=== PATIENT | male | born 1995 | race Caucasian/White ===

== ENCOUNTER → 2018-04-28 14:42 | Outpatient (CLI) | payer OTHER, SELFPAY ==
[2018-04-28 10:40] VITALS: BMI 24.7
--- OUTSIDE RECORDS SUMMARY | 2018-07-03 13:45 | XMS RPT_ITS ---
:1995 Author Organization OHIP Care Team Providers Name Role Phone JACKLYN LUCAS II Attending Unavailable Juarez Davis Attending Unavailable Darryn Melendez Referring Unavailable Juarez Davis Attending Unavailable Juarez Davis Referring Unavailable Darryn Melendez Primary Care Unavailable PROBLEMS PROBLEMS DATE TYPE CONDITION / CODE ATTENDING STATUS SOURCE 05/07/2018 Unknown J02.9 - Acute Juarez Davis Active [place] pharyngitis, Community unspecified / Hospital J02.9(ICD-10) Repository 05/07/2018 Unknown J32.0 - Chronic Juarez Davis Active [facility] maxillary Community sinusitis / Hospital J32.0(ICD-10) Repository PROCEDURES PROCEDURES No Procedure Records FoundRESULTS RESULTS Observed: 04/28/2018 Status: F Source: [facility] CULTURE, R/O STREP A 3:10 PM [facility] REPOSITORY SHAYY Culture No Streptococcus group A isolated. * This cultures intended use is to screen for Beta Streptococcus A only. All other pathogens and potential pathogens will not be screened for or reported. If a complete workup of all potential pathogens is indicated an order for a routine throat culture is required. Performed By: #### M100.010 #### [facility] [address] 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 Accompanied by: self Is patient in pain?: No Allergies No Known Allergies Allergy (Unverified 04/28/18 10:41) Medications amoxicillin 875 mg-potassium clavulanate 125 mg tablet 1 tab PO BID #20 tab 04/28/18 [Rx Confirmed 04/28/18] guaifenesin ER 1,200 mg tablet, extended release 12 hr 1,200 mg PO Q12H 04/28/18 [History Confirmed 04/28/18] PFSH Medical History Chest pain (Acute) Neck pain (Acute) Severe headache (Acute) Social History Smoking Status: Never smoker alcohol intake: never HPI HPI Chief Complaint: Sore throat Details: CELIO SPAIN, is a 23 M who presents to the office today for initial evaluation approximately 3-week history of progressively worsening left facial pressure, postnasal drip, sore throat, mild nausea, and chills. No complaints of fever, sweats, rash, chest pressure/shortness of breath/wheeze. Patient is a non-smoker noting no other members in household with similar complaints. He is taking no ypwm-jsq-[id number] products except Mucinex to assist with symptoms which has given him minimal to no relief. He notes no other associated symptoms and no other alleviating or aggravating factors. ROS Const Constitutional: No other (ROS negative x10 other than as noted above) Exam Const General: cooperative, healthy appearing, no acute distress, uncomfortable Nutritional Appearance: average body habitus Orientation: alert, awake, oriented x3 HENMT Head: normal to inspection Ears: hearing grossly normal bilaterally, external ears normal, TM's normal bilaterally, EAC's normal Nose: external nose normal, nares normal, septum normal, no nasal discharge Face and sinus: normal facial exam, face symmetric, sinus tenderness maxillary (Left, with fullness to palpation of the same) Mouth: oral mucosae normal, lip normal, tongue normal Teeth and gingiva: gingiva normal, dentition normal Throat: posterior oropharynx normal, uvula midline, postnasal drainage (Scant exudative), abnormal tonsil bilaterally erythema (Trace; rapid strep test today negative) Eyes General: appearance normal, both eyes and all related structures Neck Neck: normal visual inspection, full ROM, no meningeal signs, supple, lymphadenopathy (L>R anterior cervical node swelling and tender to palpation) Neck mass: No Thyroid: thyroid normal Chest Chest palpation AND inspection: normal inspection of the chest Resp Effort AND Inspection: normal respiratory effort, able to speak in complete sentences, symmetric chest movement, no cough Auscultation: Bilateral: Clear to Auscultation Cardio Palpation: normal PMI Rate: regular rate Rhythm: regular rhythm Heart Sounds: S1 normal, S2 normal, no gallops, no murmurs, no rubs Pulses: radial pulses present GI Inspection: normal to inspection Palpation: soft Skin General: no rashes or lesions noted Neuro General: alert, awake, oriented x3, gait normal Cognition: normal cognition Speech: speech normal Gait: normal gait Motor: muscle tone normal throughout Sensory Exam: no sensory deficits noted Psych Appearance: grossly normal Mental Status: mental status grossly normal Mood: congruent mood Affect: normal affect Speech and Movement: speech and movement normal Attitude: cooperative Thought Process: normal Thought Content: normal Judgment: judgment good Assessment AND Plan Problems 1. Maxillary sinusitis J32.0 2. Pharyngitis J02.9 Plan Augmentin as prescribed today. Clear fluids, rest, Advil/Tylenol/Mucinex as needed for symptomatic relief. Follow-up with PCP in 3-5 days should symptoms not improve, sooner should symptoms worsen or any other concerns develop. Patient states acknowledging understanding all the above. This note was generated with [employer] dictation software. It may contain incorrect words, spelling, and punctuation that were not noted in checking the note before signing. Orders Orders: Medications New: Coding Level of Care Code Off vis,new,level 3 Diagnoses Maxillary sinusitis J32.0 Pharyngitis J02.9 04/28/18 1232 <Electronically signed by Juarez RODRIGUEZ> Date Juarez RODRIGUEZ Cosigner Signature: Date (if applicable) CC: PROGRESS Observed: 03/16/2018 Status: COMPLETED Source: [place] 1:52 PM [facility] REPOSITORY HNO ID: [id number] Author: Jacklyn Lucas II Service: (none) Author Type: MEDICAL TRANSCRIPTION RADIOLOGY Type: Progress Notes Filed: 03/16/2018 1:59 PM Note Text: Assessment and Plan H52.03 Hyperopia, bilateral (primary encounter diagnosis) H52.222 Regular astigmatism, left eye H52.31 Anisometropia 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 Warned of need to obtain printed visual requirements for specific branch of he wishes to enter. Some glasses use and patching attempted at young age. Discussed need to see if acuity can be improved to 20/20 in left eye. Next question is if binocular function can be improved with glasses and training. If acuity and binocularity can be improved then PRK left eye may be of value. Patient will call if treatment for mild amblyopia is desired. I have confirmed and edited as necessary the relevant ophthalmic history, ROS, and the neuro exam findings as obtained by others. I have seen and examined Celio Spain. I have discussed the case and the management of this patient's care with the Resident/Fellow, if applicable. I also have reviewed and agree with the assessment and plan as stated above and agree with all of its relevant components. Jacklyn Lucas, II, OD ALLERGIES ALLERGIES DATE TYPE / CODE NAME / CODE REACTION SEVERITY SOURCE 04/28/2018 Drug No Known Unknown [facility] Allergy/4160 Allergies/F001 Hospital [address](SNOMED 712538(RXNORM) Repository CT) 05/07/2012 DRUG CODEINE OTHER: SEE C Low [facility]GREDI/[address] [place] [address](SNOMED Repository CT) 11/04/2007 DRUG GRASS POLLEN [facility]/[address] [place] [address](SNOMED Repository CT) 11/04/2007 Environ/4201 POLLEN [facility] [address](SNOMED [address] [place] [address]) Repository ENCOUNTERS ENCOUNTERS ADMIT/DISCHARGE ACCOUNT ADMITTING ENCOUNTER LOCATION SOURCE NUMBER CLASS 04/28/2018 [id number] Ambulatory [place] [facility] [facility] Hospital ing:[facility] Repository 04/28/2018/04/28/19 [id number] Ambulatory BMSBuilding:[address] [place] [address] Repository 03/16/2018/03/16/20 [id number] Ambulatory [address] Repository PAYERS PAYERS ENCOUNTER GUARANTOR PAYER SUBSCRIBER SOURCE 04/28/2018 CELIO PERSAUD Primary [place] Insurance:AETKendra LairdB: [address] Number: [id number], [place] [address]Kmt: [id number] Repository Date:[id number] [address]IN: 04/28/2018 Secondary NOT GIVENUNK [place] Insurance:SELF PAY [facility] Number: Effective Repository Date:2018-04-28 04/28/2018 CELIO PERSAUD Primary [place] Insurance:Kun LairdB: [address] Number: [id number], [place] [address]Mfw: [id number] Repository Date:[id number] [address]) [id number] [address]TW: 04/28/2018 Secondary NOT GIVENUNK [place] Insurance:SELF PAY [facility] Number: Effective Repository Date:2018-04-28
== END ==
PROVIDERS: Family Provider Pediatrics; PCP Pediatrics; Referring Provider Physician Assistant; Visit Provider Physician Assistant
DX: J02.9 Acute pharyngitis, unspecified (principal)
CPT/HCPCS: 87081